=== PATIENT | female | born 1970 | race Caucasian/White ===

== ENCOUNTER 2017-05-20 18:08 | Emergency (ER) | payer MEDICAID ==
[~2017-05-20] VITALS: Ht 165.1 cm; Wt 55.0 kg
[~2017-05-20 18:08] MED LIST: GABA250S PO; LORA2TAB PO; MIRA33502 PO; MORP30SU PO; OXYC15TA PO; OXYC15TA3 PO; RIVA10 PO; SENN1TAB11 PO
[2017-05-20 18:12] VITALS: BP 123/70; PULSE 88; RESP 15; TEMP 98.4; O2SAT 98
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
[2017-05-20] MEDS ORDERED: SODIUM CHLORIDE 0.9% FLUSH 10 ML FLUSH IV FLUSH PRN (21:00)
[2017-05-20 21:03] VITALS: O2SAT 99
[2017-05-20 21:21] LABS: AUTOMATED NEUTROPHIL # 6.2 TH/MM3 (1.8-7.7); BASOPHIL # 0.1 TH/MM3 (0-0.2); BASOPHIL % 0.6 % (0.0-2.0); EOSINOPHIL # 0.7 TH/MM3 (0-0.4); EOSINOPHIL % 6.7 % (0.0-4.0); HEMATOCRIT 34.7 % (35.0-46.0); HEMOGLOBIN 11.3 GM/DL (11.6-15.3); LYMPH % 22.8 % (9.0-44.0); LYMPHOCYTE # 2.3 TH/MM3 (1.0-4.8); MEAN CELL VOLUME 88.9 FL (80.0-100.0); MEAN CORPUSCULAR HEMOGLOBIN 28.9 PG (27.0-34.0); MEAN CORPUSCULAR HGB CONC 32.6 % (32.0-36.0); MEAN PLATELET VOLUME 8.8 FL (7.0-11.0); MONO % 7.7 % (0.0-8.0); MONOCYTE # 0.8 TH/MM3 (0-0.9); NEUT % 62.2 % (16.0-70.0); PLATELET COUNT 243 TH/MM3 (150-450); RED CELL DISTRIBUTION WIDTH 18.4 % (11.6-17.2)
[2017-05-20 21:26] LABS: BACTERIA, URINE MANY /hpf; BILIRUBIN, URINE NEG (NEG); BLOOD, URINE LARGE (NEG); GLUCOSE,URINE NEG (NEG); KETONE, URINE NEG (NEG); MUCUS URINE FEW /lpf (OCC); NITRITE,URINE POS (NEG); SQUAMOUS EPITHELIAL CELL URINE 2 /hpf (0-5); URINE COLOR YELLOW (YELLW/STRAW); URINE LEUKOCYTE ESTERASE LARGE (NEG)
[2017-05-20 21:33] LABS: INTERNATIONAL NORMALIZED RATIO 0.9 RATIO; PROTHROMBIN TIME - PATIENT 9.8 SEC (9.8-11.6)
[2017-05-20 21:37] LABS: ALBUMIN 3.3 GM/DL (3.4-5.0); ALT (GPT) 21 U/L (10-53); AST (GOT) 17 U/L (15-37); BLOOD UREA NITROGEN 16 MG/DL (7-18); CALCIUM 8.5 MG/DL (8.5-10.1); CHLORIDE 108 MEQ/L (98-107); CREATININE 1.04 MG/DL (0.50-1.00); GLOMERULAR FILTRATION RATE 57 ML/MIN (>89); GLUCOSE,RANDOM 100 MG/DL (74-106); LIPASE 278 U/L (73-393); SODIUM (NA) 140 MEQ/L (136-145)
[2017-05-20 21:40] LABS: ALKALINE PHOSPHATASE 89 U/L (45-117); TOTAL BILIRUBIN ADULT 0.1 MG/DL (0.2-1.0); TOTAL PROTEIN 6.8 GM/DL (6.4-8.2)
[2017-05-20] MEDS ORDERED: MORPHINE SULFATE 4 MG/ML INJ IV PUSH ONE (22:00)
[2017-05-20 22:20] VITALS: BP 101/63; PULSE 96; RESP 18; O2SAT 97
[2017-05-20] MEDS ORDERED: IOHEXOL 350 MG/ML 10 ML VIAL (for RAD DIAG) IVCONTRAST ONE (22:25)
--- NOTE | 2017-05-20 22:36 | RADRPT ---
EXAM DATE/TIME: 05/20/2017 22:19 [place] COMPARISON: No previous studies available for comparison. INDICATIONS : Vaginal bleeding with abdominal pain. IV CONTRAST: 75 cc Omnipaque 350 (iohexol) IV ORAL CONTRAST: No oral contrast ingested. RADIATION DOSE: 4.57 CTDIvol (mGy) MEDICAL HISTORY : None SURGICAL HISTORY : section. ENCOUNTER: Initial ACUITY: 1 day PAIN SCALE: 10/10 LOCATION: Bilateral pelvis TECHNIQUE: Volumetric scanning of the abdomen and pelvis was performed. Using automated exposure control and ad justment of the mA and/or kV according to patient size, radiation dose was kept as low as reasonably achievable to obtain optimal diagnostic quality images. DICOM format image data is available electro nically for review and comparison. FINDINGS: LOWER LUNGS: The visualized lower lungs are clear. LIVER: Homogeneous density without lesion. There is no dilation of the biliary tree. No calcified gallston es. SPLEEN: Normal size without lesion. PANCREAS: Within normal limits. KIDNEYS: Tiny bilateral renal cysts. No evidence of suspicious mass, stone or hydronephrosis. ADRENAL GLANDS: Within normal limits. VASCULAR: There is no aortic aneurysm. BOWEL/MESENTERY: Stomach is distended with fluid and content. Stool present throughout the colon. No dilated small bow el loops. ABDOMINAL WALL: Within normal limits. RETROPERITONEUM: There is no lymphadenopathy. BLADDER: No wall thickening or mass. REPRODUCTIVE: 4 cm cyst involving the right ovary. 3.3 cm cyst involving the left ovary. Fluid density in the endom etrial cavity. No significant free pelvic fluid. INGUINAL: There is no lymphadenopathy or hernia. MUSCULOSKELETAL: Within normal limits for patient age. CONCLUSION: Cysts in the adnexa bilaterally. Distention of the stomach and colon. Blaise Quiroz MD on May 20, 2017 at 22:30 Board Certified Radiologist. This report was verified electronically.
[2017-05-20] MEDS ORDERED: SULFAMETHOXAZOLE-TRIMETHOPRIM DS 800-160 MG TAB PO ONE (23:30)
[2017-05-20] MEDS ORDERED: BACT800T5 PO (23:44)
[2017-05-20] MEDS ORDERED: TYLE325T PO (23:44)
== END 2017-05-21 00:35 | disposition home or self-care (01) ==
LOC: NEPD 18:08
DX: N39.0 Urinary tract infection, site not specified (principal); B96.20 Unspecified Escherichia coli [E. coli] as the cause of diseases classified elsewhere; R31.9 Hematuria, unspecified; Z72.0 Tobacco use
CPT/HCPCS: 74177; 80053; 81001; 83690; 84703; 85025; 85610; 85730; 87077; 87086; 87186; 96374; 99285; J2270; Q9967

== ENCOUNTER 2017-12-10 11:30 | Emergency (ER) | payer SELFPAY ==
[~2017-12-10] VITALS: Ht 165.1 cm; Wt 57.0 kg
[~2017-12-10 11:30] MED LIST changes: +BACT800T5 PO; -GABA250S PO; -LORA2TAB PO; -MIRA33502 PO; -MORP30SU PO; -OXYC15TA PO; -OXYC15TA3 PO; -RIVA10 PO; -SENN1TAB11 PO; +TYLE325T PO
[2017-12-10 11:36] VITALS: BP 127/73; PULSE 81; RESP 16; TEMP 99.2; O2SAT 100
[2017-12-10 12:07] LABS: BACTERIA, URINE OCC /hpf; BILIRUBIN, URINE NEG (NEG); BLOOD, URINE SMALL (NEG); GLUCOSE,URINE NEG (NEG); KETONE, URINE NEG (NEG); NITRITE,URINE NEG (NEG); PH, URINE 7.5 (5.0-8.5); SQUAMOUS EPITHELIAL CELL URINE 4 /hpf (0-5); URINE COLOR LIGHT-YELLOW (YELLW/STRAW); URINE LEUKOCYTE ESTERASE LARGE (NEG)
[2017-12-10] MEDS ORDERED: IBUP1TAB7 PO (12:48)
--- NOTE | 2017-12-10 12:48 | PD ---
HPI Chief Complaint: Complaint Time Seen by Provider: 12:46 Travel History International Travel<30 days: No Contact w/Intl Traveler<30days: No Traveled to known affect area: No History of Present Illness HPI 47-year-old female came to the emergency room with history of urinary frequency , urgency, dysuria and bilateral flank pain left worse than right. Patient says this is been going on for 4 days. She could not get to see her doctor and hence came here. She has been having fever with chills especially at night. T- max was 101. Patient's temperature here was 99. She says the pain is dull and it is 7 out of 10. It is nonradiating and worse when she moves around. She has had multiple UTIs in the past. Vital signs otherwise were stable. She has been nauseous but has not vomited. No history of hematuria. Patient has never had diagnosis of kidney stones. PFSH Past Medical History Narrative Medical List of her past medical, surgical, social and family history is reviewed from the nursing note. Medical History: Denies Significant Hx Cardiovascular Problems: No Diabetes: No Diminished Hearing: No Endocrine: No Genitourinary: No Immune Disorder: No Musculoskeletal: No Neurologic: No Psychiatric: No Reproductive: No Respiratory: No Immunizations Current: Yes ?: Not LMP: 09/27/17 : 3 Para: 1 Miscarriage: 1 : 1 Past Surgical History Section: Yes Gynecologic Surgery: Yes (CESARIAN SECTION) Pacemaker: No Other Surgery: Yes Social History Alcohol Use: Yes (OCCASIONAL) Tobacco Use: Yes (1PPD) Substance Use: No Allergies-Medications (Allergen,Severity, Reaction): Coded Allergies: penicillin G (Unverified Allergy, Unknown, 05/20/17) Comments List of her allergies reviewed from the nursing note. Reported Meds & Prescriptions Reported Meds & Active Scripts Active Reported Ibuprofen 800 Mg Tab 800 Mg PO Q8H PRN Narrative Medication List of her home medications reviewed from the nursing note. Review of Systems Except as stated in HPI: all other systems reviewed are Neg General / Constitutional: Positive: Fever, Chills Gastrointestinal: Positive: Nausea Genitourinary: Positive: Flank Pain Physical Exam Narrative GENERAL: Awake, alert, moderate distress SKIN: Focused skin assessment warm/dry. HEAD: Atraumatic. Normocephalic. EYES: Pupils equal and round. No scleral icterus. No injection or drainage. ENT: No nasal bleeding or discharge. Mucous membranes pink and moist. NECK: Trachea midline. No JVD. CARDIOVASCULAR: Regular rate and rhythm. No murmur appreciated. RESPIRATORY: No accessory muscle use. Clear to auscultation. Breath sounds equal bilaterally. GASTROINTESTINAL: Abdomen soft, non-tender, nondistended. Hepatic and splenic margins not palpable. Bilateral CVA tenderness left worse than right MUSCULOSKELETAL: No obvious deformities. No clubbing. No cyanosis. No edema. NEUROLOGICAL: Awake and alert. No obvious cranial nerve deficits. Motor grossly within normal limits. Normal speech. PSYCHIATRIC: Appropriate mood and affect; insight and judgment normal. Data Data Last Documented VS Vital Signs Date Time Temp Pulse Resp B/P (MAP) Pulse Ox O2 Delivery O2 Flow Rate FiO2 12/10/17 11:36 99.2 81 16 127/73 (91) 100 Orders Orders Urinalysis - C+S If Indicated (12/10/17 11:40) Ed Urine Pregnancytest Poc (12/10/17 11:40) Urine Culture (12/10/17 11:45) Complete Blood Count With Diff (12/10/17 12:52) Basic Metabolic Panel (Bmp) (12/10/17 12:52) Blood Culture (12/10/17 12:52) Ceftriaxone Inj (Rocephin Inj) (12/10/17 13:00) Ketorolac Inj (Toradol Inj) (12/10/17 13:00) Metoclopramide Inj (Reglan Inj) (12/10/17 13:00) Ed Discharge Order (12/10/17 13:24) Labs Laboratory Tests Test 12/10/17 11:45 12/10/17 12:55 Urine Color LIGHT-YELLOW Urine Turbidity HAZY Urine pH 7.5 Urine Specific [place] 1.013 Urine Protein NEG mg/dL Urine Glucose (UA) NEG mg/dL Urine Ketones NEG mg/dL Urine Occult Blood SMALL Urine Nitrite NEG Urine Bilirubin NEG Urine Urobilinogen LESS THAN 2.0 MG/DL Urine Leukocyte Esterase LARGE Urine RBC 23 /hpf Urine WBC 76 /hpf Urine Squamous Epithelial Cells 4 /hpf Urine Bacteria OCC /hpf Microscopic Urinalysis Comment CULTURE INDICATED White Blood Count 12.0 TH/MM3 Red Blood Count 4.28 MIL/MM3 Hemoglobin 11.2 GM/DL Hematocrit 35.5 % Mean Corpuscular Volume 82.9 FL Mean Corpuscular Hemoglobin 26.2 PG Mean Corpuscular Hemoglobin Concent 31.6 % Red Cell Distribution Width 21.1 % Platelet Count 324 TH/MM3 Mean Platelet Volume 9.3 FL Neutrophils (%) (Auto) 72.6 % Lymphocytes (%) (Auto) 15.2 % Monocytes (%) (Auto) 6.8 % Eosinophils (%) (Auto) 4.2 % Basophils (%) (Auto) 1.2 % Neutrophils # (Auto) 8.7 TH/MM3 Lymphocytes # (Auto) 1.8 TH/MM3 Monocytes # (Auto) 0.8 TH/MM3 Eosinophils # (Auto) 0.5 TH/MM3 Basophils # (Auto) 0.1 TH/MM3 CBC Comment DIFF FINAL Differential Comment Blood Urea Nitrogen 10 MG/DL Creatinine 0.79 MG/DL Random Glucose 72 MG/DL Calcium Level 9.0 MG/DL Sodium Level 139 MEQ/L Potassium Level 3.9 MEQ/L Chloride Level 105 MEQ/L Carbon Dioxide Level 28.5 MEQ/L Anion Gap 6 MEQ/L Estimat Glomerular Filtration Rate 79 ML/MIN MDM Medical Decision Making Medical Screen Exam Complete: Yes Emergency Medical Condition: Yes Medical Record Reviewed: Yes Differential Diagnosis UTI, pyelonephritis Narrative Course 1:17 PM UA is positive for UTI. Awaiting for blood test result. Patient is getting IV Rocephin and IV fluid bolus. She has been medicated for pain and nausea as well. 1:53 PM blood test shows slight leukocytosis. Rest of the chemistry is within normal limit. Based on this I am comfortable discharging her home on p.o. medication. Procedures EKG Prior to Arrival: No Diagnosis Primary Impression: Pyelonephritis Referrals: Primary Care Physician 2 days Additional Instructions: Return to the ER if condition worsens or any other new concerns. Otherwise take the medication as per the prescription direction. Follow-up with your primary care next couple days. Med/Other Pt SpecificInfo: Prescription(s) given Scripts Ondansetron Odt (Zofran Odt) 4 Mg Tab 4 MG SL Q6HR Y for Nausea/Vomiting, #30 TAB 0 Refills Prov: Melissa Calhoun MD 12/10/17 Nitrofurantoin Monohydrate Macrocrystals (Macrobid) 100 Mg Cap 100 MG PO BID for Infection for 10 Days, #20 CAP 0 Refills Prov: Melissa Calhoun MD 12/10/17 Disposition: 01 DISCHARGE HOME Condition: Stable Melissa Calhoun MD December 10, 2017 12:48
[2017-12-10] MEDS ORDERED: KETOROLAC TROMETHAMINE 30 MG/ML (IVP) VIAL IV PUSH ONE (13:00)
[2017-12-10] MEDS ORDERED: cefTRIAXone INJ 1,000 MG in SODIUM CHLORIDE 0.9% INJ 100 ML IV ONE (13:00)
[2017-12-10] MEDS ORDERED: METOCLOPRAMIDE HCL 10 MG/2 ML VIAL IV PUSH ONE (13:00)
[2017-12-10 13:30] LABS: AUTOMATED NEUTROPHIL # 8.7 TH/MM3 (1.8-7.7); BASOPHIL # 0.1 TH/MM3 (0-0.2); BASOPHIL % 1.2 % (0.0-2.0); EOSINOPHIL # 0.5 TH/MM3 (0-0.4); EOSINOPHIL % 4.2 % (0.0-4.0); HEMATOCRIT 35.5 % (35.0-46.0); HEMOGLOBIN 11.2 GM/DL (11.6-15.3); LYMPH % 15.2 % (9.0-44.0); LYMPHOCYTE # 1.8 TH/MM3 (1.0-4.8); MEAN CELL VOLUME 82.9 FL (80.0-100.0); MEAN CORPUSCULAR HEMOGLOBIN 26.2 PG (27.0-34.0); MEAN CORPUSCULAR HGB CONC 31.6 % (32.0-36.0); MEAN PLATELET VOLUME 9.3 FL (7.0-11.0); MONO % 6.8 % (0.0-8.0); MONOCYTE # 0.8 TH/MM3 (0-0.9); NEUT % 72.6 % (16.0-70.0); PLATELET COUNT 324 TH/MM3 (150-450); RED BLOOD COUNT 4.28 MIL/MM3 (4.00-5.30); RED CELL DISTRIBUTION WIDTH 21.1 % (11.6-17.2)
[2017-12-10 13:48] LABS: BICARBONATE 28.5 MEQ/L (21.0-32.0); CREATININE 0.79 MG/DL (0.50-1.00)
[2017-12-10] MEDS ORDERED: MACR100C2 PO (13:55)
[2017-12-10] MEDS ORDERED: ZOFR4TAB3 SL (13:55)
== END 2017-12-10 14:31 | disposition home or self-care (01) ==
LOC: NEPD 11:30
DX: N12 Tubulo-interstitial nephritis, not specified as acute or chronic (principal); F17.200 Nicotine dependence, unspecified, uncomplicated
CPT/HCPCS: 80048; 81001; 84703; 85025; 87040; 87077; 87086; 87186; 96374; 96375; 99284; J0696; J1885; J2765